=== PATIENT | male | born 1975 ===

== ENCOUNTER 2017-09-19 01:38 | Emergency (ER) | payer SELFPAY ==
[2017-09-19 01:43] VITALS: O2SAT 99
--- NOTE | 2017-09-19 02:53 | ED PDOC ---
HPI: Psych/Substance Abuse Time Seen by Provider: 09/19/17 01:49 Chief Complaint (Nursing): Alcohol Ingestion Chief Complaint (Provider): Alcohol Ingestion ED Caveat: Intoxicated History Per: Patient History/Exam Limitations: intoxication Onset/Duration Of Symptoms: Hrs Current Symptoms Are (Timing): Still Present Modifying Factor(s): Alcohol Additional Complaint(s): 42 y/o male with a medical histor of HIV presents to the ED for EtOH intoxication. Patient was found on street by EMS, but has no physical complaints at this time. He states he is compliant with his HIV medication and that his viral load was last checked two weeks ago and was found undetectable. Denies recent fever, abdominal pain, nausea, vomiting, chest pain, or SOB. PMD: None provided Past Medical History Reviewed: Historical Data, Nursing Documentation, Vital Signs Vital Signs: Last Vital Signs Temp 97.5 F L 09/19/17 01:41 Pulse 98 H 09/19/17 01:41 Resp 18 09/19/17 01:41 BP 137/99 H 09/19/17 01:41 Pulse Ox 99 09/19/17 01:41 - Medical History PMH: HIV Denies: Chronic Kidney Disease - Surgical History Surgical History: No Surg Hx - Family History Family History: States: No Known Family Hx - Social History Current smoker - smoking cessation education provided: No Ex-Smoker (has not smoked in the last 12 months): No Alcohol: Social Drugs: Denies - Allergies Allergies/Adverse Reactions: Allergies Allergy/AdvReac Type Severity Reaction Status Date / Time No Known Allergies Allergy Verified 09/19/17 02:16 Review of Systems ROS Statement: Except As Marked, All Systems Reviewed And Found Negative Constitutional: Positive for: Other (EtOH intoxication) Physical Exam - Reviewed Nursing Documentation Reviewed: Yes Vital Signs Reviewed: Yes - Physical Exam Appears: Positive for: Non-toxic, No Acute Distress Head Exam: Positive for: ATRAUMATIC, NORMOCEPHALIC Skin: Positive for: Normal Color, Warm, Dry Eye Exam: Positive for: EOMI, PERRL, Conjunctival injection (bilateral). Negative for: Periorbital swelling, Periorbital tenderness ENT: Positive for: Pharynx Is (clear, uvula midline) Neck: Positive for: Painless ROM, Supple Cardiovascular/Chest: Positive for: Regular Rate, Rhythm Respiratory: Positive for: Normal Breath Sounds. Negative for: Decreased Breath Sounds, Accessory Muscle Use, Stridor, Wheezing, Respiratory Distress Gastrointestinal/Abdominal: Positive for: Bowel Sounds (active x4), Soft. Negative for: Tenderness, Mass, Distended, Guarding Back: Positive for: Normal Inspection. Negative for: Vertebral Tenderness Extremity: Positive for: Normal ROM Neurologic/Psych: Positive for: Alert. Negative for: Motor/Sensory Deficits, Facial Droop - ECG O2 Sat by Pulse Oximetry: 99 (RA) Pulse Ox Interpretation: Normal Medical Decision Making Medical Decision Making: Time: 01:39 Impression: Alcohol intoxication Plan: * Alcohol Serum * Glucose Check 0340 Alcohol: 379 FSBS: 97 Patient sleeping comfortably in ED stretcher. No acute distress noted. Pending clinical sobriety. 0500 Patient sleeping comfortably. 0550 Patient ambulatory in ED with steady, unassisted gait. Patient was able to ambulate to ED bathroom without incident. Patient now awake, alert, and oriented x3. On exam, patient in no acute distress. Lungs clear to auscultation, cardiac RRR , abdomen soft, non-tender, repeat neuro exam shows no focal findings. VSS, stable for discharge. Lab/Diagnostic results d/w the patient in great detail. Diagnosis of alcohol intoxication d/w the patient. Based on history, exam and diagnostic results, plan will be for outpatient follow up. Patient instructed to follow-up with pmd / referral provided / the clinic in 1- 2 days without fail. Advised to take medication as prescribed. Return to the emergency room at any time for any new or worsening symptoms. Patient states he fully agrees with and understands discharge instructions. States that he agrees with the plan and disposition. Verbalized and repeated discharge instructions and plan. I have given the patient opportunity to ask any additional questions. Scribe Attestation: Documented by Lowell Ghosh acting as a scribe for REJI Oliva MDibe Attestation: All medical record entries made by the Kimmie were at my direction and personally dictated by me. I have reviewed the chart and agree that the record accurately reflects my personal performance of the history, physical exam, medical decision making, and the department course for this patient. I have also personally directed, reviewed, and agree with the discharge instructions and disposition. Disposition - Clinical Impression Clinical Impression: Alcohol ingestion, Alcohol intoxication - Patient ED Disposition Is Patient to be Admitted: No Counseled Patient/Family Regarding: Studies Performed, Diagnosis, Need For Followup - Disposition Referrals: [facility] [Outside] Disposition: Routine/Home Disposition Time: 05:56 Condition: IMPROVED Instructions: Alcohol Use - When Is Drinking a Problem?, Alcohol Abuse and Alcoholism (DC) Forms: [facility] (Nigerian) Print Language: ITALIAN - POA Present On Arrival: None Results - Lab Results Lab Results: 09/19/17 09/19/17 02:30 01:50 POC Glucose (mg/dL) 97 Alcohol, Quantitative 379 H*
[2017-09-19 06:54] VITALS: BP 132/88; PULSE 86; RESP 16; TEMP 98.1
== END 2017-09-19 06:35 | disposition home or self-care (01) ==
LOC: H.ER 01:38 → EDBD 01:38 → H.ER 06:35
DX: F10.129 Alcohol abuse with intoxication, unspecified (principal)
CPT/HCPCS: 82948; 99284; G0480